=== PATIENT | female | born 2005 | race Caucasian/White ===

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

== ENCOUNTER → 2023-03-23 | Outpatient (CLI) | payer OTHER ==
--- NOTE | 2023-03-23 09:12 | US ---
EXAMINATION TYPE: Transabdominal DATE OF EXAM: 03/23/2023 8:57 AM COMPARISON: NONE CLINICAL INDICATION: Female, 17 years old with history of Z36.89 CONFIRM GESTATIONAL AGE AND VIABILIT Y; confirm dates EXAM PERFORMED: Transabdominal (TA) EXAM MEASUREMENTS: GESTATIONAL AGE / DATING Dates by LMP: (12 weeks/6 days) EDC: 09/29/2023 Dates by Current Scan for: (12 weeks/4 days) EDC: 10/01/2023 MATERNAL ANATOMY Uterus: 12.5x5.9x8.5cm Right Ovary: 3.4x3.2x2.1cm Left Ovary: 2.5x1.8x1.5cm Post CDS / Adnexa: wnl Presence of free fluid: negative Presence of corpus luteal cyst: n/a Presence of subchorionic bleed: n/a GESTATION / SURVEY CRL: 6.05 (12 weeks/4 days) Yolk Sac (normal less than 6mm): not visualized Heart Rate: 151 bpm Rhythm: Normal IUP: Viable IUP Nuchal Translucency 10-14wks (normal less than 3mm): not assessed Age Appropriate Anatomy Cord Insertion: Too early to visualize Limbs: Arms Visualized Calvarium: Visualized Date of LMP: 12/23/2022 Beta HcG (if available): Not available at this time IMPRESSION: Single live intrauterine gestation with ultrasound age 12 weeks 4 days which is concordant with dates by last menstrual period.
== END | disposition home or self-care (01) ==
LOC: RADUSWWP 08:21
PROVIDERS: ATTEND Obstetrics & Gynecology
DX: Z36.89 Encounter for other specified antenatal screening (principal); Z3A.12 12 weeks gestation of pregnancy
CPT/HCPCS: 76801

== ENCOUNTER 2023-09-30 05:49 | Inpatient (IN) | payer BC, OTHER ==
--- NOTE | 2023-09-29 07:00 | P.HPOB ---
History of Present Illness H&P Date: 09/29/23 Chief Complaint: Requested induction of labor This patient is a pleasant 18-year-old 1 para 0 female estimated date of confinement 09/29/2023 estimated gestational age 40 and one sevenths weeks who presents to labor and delivery for requested induction of labor. Patient's care has been uncomplicated. She is now past her due date as requested induction of labor. Review of Systems Genitourinary: Reports Menstruation: Reports amenorrhea Past Medical History Past Medical History: No Reported History History of Any Multi-Drug Resistant Organisms: None Reported Past Surgical History: No Surgical Hx Reported Past Anesthesia/Blood Transfusion Reactions: No Reported Reaction Past Psychological History: No Psychological Hx Reported Smoking Status: Former smoker Past Alcohol Use History: None Reported Past Drug Use History: None Reported Medications and Allergies Allergies Allergy/AdvReac Type Severity Reaction Status Date / Time No Known Allergies Allergy Verified 08/30/18 14:04 Exam - OBG Physical Exam Abdomen: bowel sounds normal, no diffuse tenderness, no bruit present, no guarding noted, no hepatomegaly, no splenomegaly, no mass Vulva: both: normal Vagina: normal moisture, no discharge Cervix: no lesion (Cervix in the office is 2 cm dilated and effaced.), no discharge Uterus: enlarged (Fundal height 39 cm) Results blood work shows she is A positive, rubella non-immune, RPR is nonreactive, hepatitis B and C are negative, HIV is nonreactive, Glucola was normal, anatomy and growth ultrasounds have been normal, group B strep was positive. Assessment and Plan Assessment: This is a pleasant 18-year-old 1 para 0 female 40 and one sevenths weeks gestation admitted to labor and delivery for requested induction of labor. Patient is a positive group B strep as well. Plan is antibiotic prophylaxis, Pitocin induction of labor per protocol, and anticipate vaginal delivery. (1) 40 weeks gestation of Status: Acute Code(s): Z3A.40 - 40 WEEKS GESTATION OF SNOMED Code(s): 83102466 (2) Elective induction of labor planned Status: Acute Code(s): GOX0947 - SNOMED Code(s): 693265529 (3) Group B streptococcal carriage complicating Status: Acute Code(s): O99.820 - STREPTOCOCCUS B CARRIER STATE COMPLICATING SNOMED Code(s): 806935774538140
[2023-09-30] MEDS ORDERED: OXYTOCIN 10 UNIT/ML 1 ML VIAL IM PRN (06:05)
[2023-09-30] MEDS ORDERED: LACTATED RINGERS 1,000 ML IV SCH (06:05)
[2023-09-30] MEDS ORDERED: OXYTOCIN 30 UNITS/500 ML NS 30 UNIT in SALINE 1 500ML.BAG IV SCH ×2 (06:05→12:30)
[2023-09-30] MEDS ORDERED: TRANEXAMIC 1,000 MG/100ML-NACL 1,000 MG in EMPTY BAG 1 BAG IV PRN (06:05)
[2023-09-30] MEDS ORDERED: AMPICILLIN 2,000 MG in SODIUM CHLORIDE 0.9% 100 ML IVPB STA (06:05)
[2023-09-30] MEDS ORDERED: miSOPROStoL 200 MCG TAB PO PRN (06:05)
[2023-09-30] MEDS ORDERED: LIDOCAINE 0.5% (PF) 5 MG/ML (50 ML SDV) SQ PRN (06:05)
[2023-09-30] MEDS ORDERED: CARBOPROST TROMETHAMINE 250 MCG/ML 1 ML AMP IM PRN (06:05)
[2023-09-30] MEDS ORDERED: TERBUTALINE 1 MG/ML VIAL SQ PRN (06:05)
[2023-09-30] MEDS ORDERED: METHYLERGONOVINE 0.2 MG/ML 1 ML AMP IM PRN (06:05)
[2023-09-30 06:19] LABS: Basophils # (A) 0.1 k/uL (0-0.2); Basophils % (A) 0 %; Eosinophils # (A) 0.3 k/uL (0-0.7); Eosinophils % (A) 2 %; HCT 32.7 % (34.0-46.0); HGB 10.8 gm/dL (11.4-16.0); Hypochromasia Slight; Lymphocytes # (A) 2.9 k/uL (1.0-4.8); Lymphocytes % (A) 24 %; MCH 26.6 pg (25.0-35.0); MCV 80.7 fL (80.0-100.0); Mean Platelet Volume 9.3; Monocytes # (A) 0.7 k/uL (0-1.0); Monocytes % (A) 6 %; Neutrophils # (A) 7.8 k/uL (1.3-7.7); Neutrophils % (A) 65 %; Platelet Count 239 k/uL (150-450); RBC 4.05 m/uL (3.80-5.40); RDW 14.6 % (11.5-15.5)
[2023-09-30] MEDS ORDERED: NALBUPHINE 10 MG/ML (10 ML MDV) IV PRN (09:28)
[2023-09-30] MEDS ORDERED: AMPICILLIN 1,000 MG in SODIUM CHLORIDE 0.9% 50 ML IVPB SCH (10:30)
[2023-09-30] MEDS ORDERED: ROPIVACAINE 5 MG/ML 30 ML VIAL ONE (11:21)
[2023-09-30] MEDS ORDERED: SODIUM CHLORIDE 0.9% 250 ML BAG ONE (11:21)
[2023-09-30] MEDS ORDERED: fentaNYL (PF) 50 MCG/ML 5 ML AMP ONE (11:21)
[2023-09-30] MEDS ORDERED: diphenhydrAMINE 25 MG CAP PO PRN (12:19)
[2023-09-30] MEDS ORDERED: diphenhydrAMINE 50 MG/ML 1 ML VIAL IVP PRN (12:19)
[2023-09-30] MEDS ORDERED: bisacodyL 10 MG SUPP RECTAL PRN (12:19)
[2023-09-30] MEDS ORDERED: ZOLPIDEM 5 MG TAB PO PRN (12:19)
[2023-09-30] MEDS ORDERED: MEASLES-MUMPS-RUBELLA VACC/PF 12,500 UNIT/0.5 ML VIAL SQ ONE (12:19)
[2023-09-30] MEDS ORDERED: SIMETHICONE 80 MG CHEWABLE PO PRN (12:19)
[2023-09-30] MEDS ORDERED: HYDROCORTISONE 2.5% RECTAL CREAM 30 GM TUBE RECTAL PRN (12:19)
[2023-09-30] MEDS ORDERED: BENZOCAINE/MENTHOL SPRAY 1 GM/SPRAY AEROSOL TOPICAL PRN (12:19)
[2023-09-30] MEDS ORDERED: LANOLIN CREAM 5 GM TUBE TOPICAL PRN (12:19)
[2023-09-30] MEDS ORDERED: ACETAMINOPHEN TAB 325 MG TAB PO PRN (12:19)
--- NOTE | 2023-09-30 12:24 | P.PROBDLV ---
Vaginal Delivery Note - . Vaginal Delivery Note: Normal vaginal delivery viable male infant Apgars 7 and 9 delivery time is 1200 hrs. Please see dictated H&P for intimate details of this patient's admission. In brief summary this pleasant 18-year-old 1 para 0 female 40 and one sevenths weeks gestation admitted to labor and delivery for postdates induction of labor. On admission she is 3 cm dilated has artificial rupture membranes for clear fluid. She is given antibiotics due to a positive group B strep culture. Patient's labor progresses and she does get an epidural for pain control. She quickly gets to complete and pushes the head to the perineum. Posterior perineum is supported. She then does have some bradycardia in the 70s and at this time it is felt an episiotomy is necessary for delivery. Therefore infiltrate posterior perineum with 1% lidocaine. Midline episiotomy i s made. We then immediately have delivery of the 's head. Mouth and nares are bulb suctioned. There is a tight nuchal cord which is doubly clamped and then reduced. The anterior shoulder then spontaneously delivers followed by the rest of the infant's body. This is a vigorous viable male Apgars are 7 and 9 delivery time is 1200 hrs. After delivery of the infant the infant is laid on the mother's abdomen. The placenta is then spontaneously delivered intact. Inspection of the perineum shows second-degree laceration was repaired with 3-0 Vicryl in the usual fashion excellent reapproximation is noted. All counts are correct 3. There are no complications. Estimated blood loss is 100 mL. Infant and mother stable in delivery room.
[2023-09-30] MEDS: IBUPROFEN 600 MG TAB PO PRN (13:23)
[2023-09-30] MEDS: SENNOSIDES-DOCUSATE SODIUM 1 EACH TAB PO SCH (20:09)
[2023-10-01] MEDS: IBUPROFEN 600 MG TAB PO PRN ×2 (03:49→11:12)
[2023-10-01 06:05] LABS: Basophils % (A) 0 %; Eosinophils # (A) 0.2 k/uL (0-0.7); Eosinophils % (A) 1 %; HCT 30.5 % (34.0-46.0); Hypochromasia Slight; Lymphocytes # (A) 2.9 k/uL (1.0-4.8); Lymphocytes % (A) 21 %; MCH 26.3 pg (25.0-35.0); MCHC 32.8 g/dL (31.0-37.0); MCV 80.1 fL (80.0-100.0); Mean Platelet Volume 8.6; Monocytes # (A) 1.1 k/uL (0-1.0); Monocytes % (A) 8 %; Neutrophils # (A) 9.5 k/uL (1.3-7.7); Neutrophils % (A) 68 %; Platelet Count 219 k/uL (150-450); RBC 3.82 m/uL (3.80-5.40); RDW 15.1 % (11.5-15.5); WBC 13.9 k/uL (4.0-11.0)
--- NOTE | 2023-10-01 06:44 | P.PNOBGVD ---
Subjective - Subjective Patient reports: Reports appetite normal, Reports voiding normally, Reports pain well controlled, Reports ambulating normally : doing well Objective - Latest Vital Signs Latest vital signs: Vital Signs Temp Pulse Resp BP Pulse Ox 10/01/23 04:00 98.0 F 85 17 117/76 97 10/01/23 00:00 98.0 F 87 16 130/78 97 09/30/23 20:00 97.3 F L 105 H 17 120/85 96 09/30/23 16:00 74 17 118/76 09/30/23 14:10 82 16 120/83 09/30/23 13:40 75 16 129/76 09/30/23 13:10 78 16 110/78 09/30/23 12:55 71 16 106/55 09/30/23 12:40 80 16 112/60 09/30/23 12:25 80 17 114/53 09/30/23 12:10 97.2 F L 85 16 114/54 Intake and Output 09/30/23 09/30/23 10/01/23 14:59 22:59 06:59 Output Total 500 Balance -500 Output: Urine 500 Other: # Voids 1 1 - Exam Lungs: bilateral: normal Chest: Normal S1, Normal S2 Extremities: Present: normal Abdomen: Present: normal appearance, soft Uterus: Present: normal, firm - Labs Labs: Abnormal Lab Results - Last 24 Hours (Table) 10/01/23 Range/Units 05:42 WBC 13.9 H (4.0-11.0) k/uL Hgb 10.0 L (11.4-16.0) gm/dL Hct 30.5 L (34.0-46.0) % Neutrophils # 9.5 H (1.3-7.7) k/uL Monocytes # 1.1 H (0-1.0) k/uL Assessment and Plan Assessment: day #1. Patient is resting without complaints and wishes to go home. Vital signs are stable she's afebrile. Uterus is firm nontender she's having normal lochia. My impression this is a normal course. Plan is to continue routine care discharge home later today (1) 40 weeks gestation of Current Visit: No Status: Acute Code(s): Z3A.40 - 40 WEEKS GESTATION OF SNOMED Code(s): 62395511 (2) Elective induction of labor planned Current Visit: No Status: Acute Code(s): VNQ0229 - SNOMED Code(s): 565728033 (3) Group B streptococcal carriage complicating Current Visit: No Status: Acute Code(s): O99.820 - STREPTOCOCCUS B CARRIER STATE COMPLICATING SNOMED Code(s): 697759089971808
--- NOTE | 2023-10-01 06:47 | P.DS ---
Providers Date of admission: 09/30/23 05:49 Expected date of discharge: 10/01/23 Attending physician: Js Grewal Primary care physician: Stated None - Discharge Diagnosis(es) (1) 40 weeks gestation of Current Visit: No Status: Acute (2) Elective induction of labor planned Current Visit: No Status: Acute (3) Group B streptococcal carriage complicating Current Visit: No Status: Acute Hospital Course: Please see dictated H&P for intimate details of this patient's admission. Brief summary is a pleasant 18-year-old 1 para 0 female 40 and one sevenths weeks gestation admitted for postdates induction of labor. Patient is admitted quickly goes on to have a vaginal delivery viable male infant. Please see dictated delivery note. day #1 patient's felt be stable for dischar ge home follow up with me in 6 weeks. Procedures: Induction of labor and normal vaginal delivery Patient Condition at Discharge: Good Plan - Discharge Summary New Discharge Prescriptions: New Ibuprofen [Motrin] 600 mg PO Q6HR PRN #30 tab PRN Reason: Mild Pain (Scale 1 To 3) No Action Vit No.179/Iron/Folic [ Tablet] 1 each PO Discharge Medication List Vit No.179/Iron/Folic [ Tablet] 1 each PO 09/30/23 [History] Ibuprofen [Motrin] 600 mg PO Q6HR PRN #30 tab 10/01/23 [Rx] Follow up Appointment(s)/Referral(s): Js Grewal MD [STAFF PHYSICIAN] - 11/10/23 1:30 pm Patient Instructions/Handouts: Vaginal Delivery (DC) Activity/Diet/Wound Care/Special Instructions: No intercourse or anything per vagina for 6 weeks. Please call if any fever, chills, excessive vaginal bleeding, and/or abdominal pain Discharge Disposition: HOME SELF-CARE
[2023-10-01] MEDS: SENNOSIDES-DOCUSATE SODIUM 1 EACH TAB PO SCH ×2 (08:07→19:57)
[2023-10-02 02:32] VITALS: RESP 16
[2023-10-02] MEDS: IBUPROFEN 600 MG TAB PO PRN (05:48)
--- NOTE | 2023-10-02 06:53 | P.PNOBGVD ---
Subjective - Subjective Patient reports: Reports appetite normal, Reports voiding normally, Reports pain well controlled, Reports ambulating normally : doing well Objective - Latest Vital Signs Latest vital signs: Vital Signs Temp Pulse Resp BP Pulse Ox 10/02/23 00:00 98.3 F 78 16 122/79 98 10/01/23 16:00 98.3 F 76 17 129/78 10/01/23 08:00 98.1 F 72 17 132/71 - Exam Lungs: bilateral: normal Chest: Normal S1, Normal S2 Extremities: Present: normal Abdomen: Present: normal appearance, soft Uterus: Present: normal, firm Assessment and Plan Assessment: Patient decided to stay yesterday therefore will be discharged home today. Plan is to continue routine care. (1) 40 weeks gestation of Current Visit: No Status: Acute Code(s): Z3A.40 - 40 WEEKS GESTATION OF SNOMED Code(s): 79376018 (2) Elective induction of labor planned Current Visit: No Status: Acute Code(s): TFT6203 - SNOMED Code(s): 377330210 (3) Group B streptococcal carriage complicating Current Visit: No Status: Acute Code(s): O99.820 - STREPTOCOCCUS B CARRIER STATE COMPLICATING SNOMED Code(s): 022234129237072
[2023-10-02] MEDS: SENNOSIDES-DOCUSATE SODIUM 1 EACH TAB PO SCH (08:47)
[2023-10-02 10:13] VITALS: BP 117/80; PULSE 79; TEMP 98.4
== END 2023-10-02 13:45 | disposition home or self-care (01) | DRG 560 ==
LOC: 4FBP 05:49
PROVIDERS: ADMIT Obstetrics & Gynecology; ATTEND Obstetrics & Gynecology
PROC: 10E0XZZ Delivery of Products of Conception, External Approach (ICD-10-PCS; principal; 2023-09-30)
PROC: 0KQM0ZZ Repair Perineum Muscle, Open Approach (ICD-10-PCS; 2023-09-30)
PROC: 10907ZC Drainage of Amniotic Fluid, Therapeutic from Products of Conception, Via Natural or Artificial Opening (ICD-10-PCS; 2023-09-30)
PROC: 0W8NXZZ Division of Female Perineum, External Approach (ICD-10-PCS; 2023-09-30)
DX: O48.0 Post-term pregnancy (principal); Z37.0 Single live birth; R00.1 Bradycardia, unspecified; O69.1XX0 Labor and delivery complicated by cord around neck, with compression, not applicable or unspecified; O99.824 Streptococcus B carrier state complicating childbirth; O70.1 Second degree perineal laceration during delivery; Z3A.40 40 weeks gestation of pregnancy; Z87.891 Personal history of nicotine dependence; Z28.310 Unvaccinated for COVID-19
CPT/HCPCS: 85025; 86850; 86900; 86901; 90707

== ENCOUNTER → 2024-06-29 | Outpatient (CLI) | payer SELFPAY ==
--- NOTE | 2024-06-29 09:49 | USB ---
Reason for Exam: Clinical finding. Technique: Method: Targeted. Findings: The area of palpable concern of the left breast, the axilla of the left breast and the retroareolar of the left breast were scanned. Targeted ultrasound left breast in the palpable site 4:00 position, 5 cm from the nipple. There is a circumscribed, round isoechoic mass with measuring 4.9 x 4.4 x 3.4 cm. There is internal vascularity and posterior through-transmission. Small internal cystic areas measure up to 5 mm. No axillary lymphadenopathy. Overall Assessment: Suspicious, BI-RAD 4 Management: Ultrasound Core Biopsy of the left breast. Surgical Consultation of both breasts. 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 After confirming with biopsy, the patient can meet with the breast surgeon to discuss possible treatment options. Results were given to the patient verbally at the time of exam. Electronically signed and approved by: Chalo Estrada M.D. Radiologist
== END | disposition home or self-care (01) ==
LOC: RADUSWWP 09:24
PROVIDERS: ATTEND Family Medicine
DX: N63.20 Unspecified lump in the left breast, unspecified quadrant (principal)

== ENCOUNTER → 2024-07-17 | Day surgery (SDC) | payer OTHER ==
--- NOTE | 2024-07-24 12:43 | USB ---
Pathology Description: Location: 4 o'clock. Marker Left Behind. Needle Type: Mammotome Cores: 6 Skin Nicks: 1 Gauge: 13 The procedure of ultrasound guided core biopsy was explained to the patient. Benefits, alternatives, and risks were discussed. An informed consent was then obtained. A timeout was performed. The patient was placed in supine positioning for imaging and for the procedure. The overlying skin was prepped and draped in usual sterile fashion. Lidocaine was used as anesthetic into the skin and subcutaneous tissue up to area of concern in the breast. A small skin reginaldo was made with surgical scalpel. Under ultrasound guidance, a 12-gauge vacuum assisted biopsy gun device was used to obtain 6 core samples. A biopsy clip was left in lesion. Hydromark coil core marker was placed in the center of the mass. The patient tolerated the procedure well without any immediate complication. The patient was kept in the radiology department for short stay after the procedure and then discharged home in stable condition. Postprocedure mammogram: Deferred due to patient age and volume lesion remaining following the procedure. Impression: Successful ultrasound guided core biopsy of area of concern in the left breast, full pathology results to follow. Recommendations: 1. Recommendations are pending pathology results. [facility], , 07/17/2024 2:49 PM. Pathology Results: Result: Benign, Fibroadenoma. Pathology and radiology were reviewed. Findings are concordant. LEFT BREAST, FOUR O'CLOCK, ULTRASOUND GUIDED CORE BIOPSY: Benign fibroadenoma with myxoid change. Overall Assessment: Benign Management: Surgical Consultation of the left breast. Electronically signed and approved by: Tino Mcrae D.O. Radiologis
== END ==
LOC: RADUSWWP 12:46
PROVIDERS: ATTEND Family Medicine
DX: R92.8 Other abnormal and inconclusive findings on diagnostic imaging of breast
CPT/HCPCS: 88305

== ENCOUNTER → 2025-01-15 | Outpatient (CLI) | payer OTHER ==
--- NOTE | 2025-01-15 08:17 | USB ---
Reason for Exam: Clinical finding. Patient History: 07/17/2024, Benign US biopsy breast VAD LT on the left side. Technique: Method: Targeted. Findings: The area of palpable concern of the right breast, the axilla of the right breast and the retroareolar of the right breast were scanned. There is a large partially solid partially cystic mass left breast measuring 4.7 x 4.2 cm.. Previously biopsied and reported to represent fibroadenoma. Overall Assessment: Benign, BI-RAD 2 Management: Surgical Consultation of the left breast. A clinical breast exam by your physician is recommended on an annual basis and results should be correlated with mammographic findings. This exam should not preclude additional follow-up of suspicious palpable abnormalities. Results were given to the patient verbally at the time of exam. [facility], , 01/15/2025 8:14 AM. Electronically signed and approved by: Tylor Davila M.D. Radiologis
== END | disposition home or self-care (01) ==
LOC: RADUSWWP 07:35
PROVIDERS: ATTEND Surgery
DX: N60.02 Solitary cyst of left breast (principal)

== ENCOUNTER → 2025-01-18 | Outpatient (CLI) | payer OTHER ==
--- NOTE | 2025-01-18 12:52 | USB ---
Reason for Exam: Clinical finding. Patient History: 07/17/2024, Benign US biopsy breast VAD LT on the left side. Technique: Method: Whole Breast Handheld. Findings: The whole breast of both breasts, the axilla of both breasts and the retroareolar of both breasts were scanned. A complete US of all four quadrants of the bilateral breast and retro-areolar region were reviewed. Rounded solid mass 4:00 position left breast measuring 4.7 cm stable. There is a benign cyst or cyst cluster seen within the right breast 5:00 position. Measures up to 9 mm. Overall Assessment: Suspicious, BI-RAD 4 Management: Surgical Consultation of the left breast. A clinical breast exam by your physician is recommended on an annual basis and results should be correlated with mammographic findings. This exam should not preclude additional follow-up of suspicious palpable abnormalities. Results were given to the patient verbally at the time of exam. [facility], , 01/18/2025 12:47 PM. Electronically signed and approved by: Tylor Davila M.D. Radiologis
== END | disposition home or self-care (01) ==
LOC: RADUSWWP 11:16
PROVIDERS: ATTEND Surgery
DX: N63.10 Unspecified lump in the right breast, unspecified quadrant (principal); N63.22 Unspecified lump in the left breast, upper inner quadrant

== ENCOUNTER → 2025-01-18 | Outpatient (CLI) | payer OTHER ==
[2025-01-18 10:43] VITALS: BP 113/76; PULSE 63; RESP 17; TEMP 98
--- NOTE | 2025-01-18 11:00 | P.BCPN ---
Subjective Progress Note Date: 01/18/25 Principal diagnosis: fibroadenoma left breast 01-18-25 Reason for Consult: mass left breast Requesting physician: Elia Clifton History of present illness: Cathy is a 19 year old female seen in consultation for Dr. Clifton regarding a left breast ultrasound core biopsy on 07-17-24. The lesion was 4.9 by 4.4 by 3.4 in size. She was able to feel the lesion in her left breast for about two years. It has increased in size. It is painful at times. She has not had any surgery on her breast. She has not had any recent trauma or infection in the breast. She has not had any radiographic evaluation of the right breast. The lump does not change in size with her menstrual cycle. The lump has increased in size since she noted it and it is painful. note 07-20-24 DR. Clifton reviewed Caffeine: none nicotine: vapes 1 cartridge every two weeks alcohol: occasional chocolate: occasional BCP: 1 year not on them now Family History: maternal aunt: breast cancer late Hormonal History: menarche: 9 age at first : 18, did not breast feed periods regular , LMP: last week Surgical History: none Medical History: none Social history: Vapes 1 cartridge every 2 weeks; since alcohol: occasional drugs: none Review of Systems - Constitutional Denies fever, Denies weight loss - EENT Eyes: denies blurred vision Ears: deny: decreased hearing, tinnitus Ears, nose, mouth and throat: Denies dysphagia - Breasts bilateral: as per HPI - Cardiovascular Denies chest pain, Denies shortness of breath - Respiratory Denies cough - Gastrointestinal Reports as per HPI - Genitourinary Genitourinary: Denies dysuria, Denies hematuria Menstruation: Reports period normal - Musculoskeletal Reports as per HPI - Integumentary Denies rash, Denies unusual bruising - Neurological Denies headaches, Denies syncope - Psychiatric Reports as per HPI - Endocrine Reports as per HPI - Hematologic/Lymphatic Denies easy bleeding, Denies easy bruising - Allergic/Immunologic Reports seasonal allergies Past Medical History Past Medical History: No Reported History History of Any Multi-Drug Resistant Organisms: None Reported Past Surgical History: No Surgical Hx Reported Past Anesthesia/Blood Transfusion Reactions: No Reported Reaction Additional Past Anesthesia/Blood Transfusion Reaction / Comm: no hx. anesthesia Past Psychological History: No Psychological Hx Reported Smoking Status: Current every day smoker, Vaper Past Alcohol Use History: Occasional Past Drug Use History: None Reported Medications and Allergies Home Medications Medication Instructions Recorded Confirmed Type No Known Home Medications 07/04/24 12/14/24 History Allergies Allergy/AdvReac Type Severity Reaction Status Date / Time No Known Allergies Allergy Verified 12/14/24 12:38 Objective - Vital Signs Vital Signs: Vital Signs Temp 98.0 F 01/18/25 10:40 Pulse 63 01/18/25 10:40 Resp 17 01/18/25 10:40 BP 113/76 01/18/25 10:40 Pulse Ox 98 01/18/25 10:40 FiO2 Intake & Output 01/17/25 01/18/25 01/18/25 18:59 06:59 18:59 Weight 99.79 kg - Constitutional General appearance: Present: cooperative - EENT Eyes: Present: EOMI ENT: Present: hearing grossly normal - Neck Neck: Present: normal ROM - Breast Breast-Narrative: Breast Exam: BRA: large sports bra inspection: Bilateral grade 2 ptosis Palpation: Right breast: Multi positional exam no dominant masses or nodules of concern Right axilla: No adenopathy of concern Left breast: Multi positional exam approximately 5 x 6 cm firm mass in the lower outer quadrant consistent with the area where fibroadenoma was biopsied no other dominant masses or nodules of concern Left axilla: No adenopathy of concern Bra Size: large Ptosis: Grade 2: Right Breast Ptosis, Left Breast Ptosis Breast: right: normal, left: mass (5 by 6 cm mass lower outer quadrant) Right Breast Palpation (Multi-positional): No dominant masses Left Breast Palpation (Multi-positional): Other Right Axilla Palpation: No adenopathy of concern Left Axilla Palpation: No adenopathy of concern - Respiratory Respiratory: bilateral: CTA - Cardiovascular Rhythm: regular Heart sounds: normal: S1, S2 - Gastrointestinal General gastrointestinal: Present: soft - Integumentary Integumentary: Present: normal turgor - Musculoskeletal Musculoskeletal: Present: gait normal - Psychiatric Psychiatric: Present: A&O x's 3, appropriate affect, intact judgment & insight Assessment and Plan Plan: Impression: Biopsy-proven left breast fibroadenoma; > 5 cm lesion Plan: Bilateral breast ultrasound to rule out any other fibroadenomas prior to surgical resection; left side done and no additional sites seen Surgical resection palpable mass left breast/this is increasing in size it is painful; possible oncoplastic tissue transfer CC: Dr. Clifton Prep Education Provided - Preoperative Education Given Pre-Op Kit Given Date: 01/18/25 - Functional Assessment Performed?: Yes (arm abduction passed) Referal Provided?: No - Smoking Cessation Education Provided?: Yes (patient vapes )
== END ==
LOC: WWCWWP 09:35
PROVIDERS: ATTEND Surgery
DX: D24.2 Benign neoplasm of left breast (principal)

== ENCOUNTER 2025-02-06 09:59 | Day surgery (SDC) | payer OTHER ==
[2025-02-02 13:29] VITALS: BMI 37.8
[~2025-02-06 09:59] MED LIST: HYDROmorphone 0.5 MG/0.5 ML SYRINGE IVP PRN; LIDOCAINE 1% (10MG/ML) FOR IV START INTRADERMA PRN; MIDAZOLAM 2 MG/2 ML VIAL IV PRN; fentaNYL (PF) 50 MCG/ML 2 ML AMP IVP PRN
[2025-02-06] MEDS: IV FLUID CONTINUATION 1,000 ML IV ONE (10:45)
[2025-02-06] MEDS: LACTATED RINGERS 1,000 ML IV SCH (10:47)
[2025-02-06] MEDS: DEXAMETHASONE SOD PHOSPHATE 4 MG/ML 1 ML VIAL IV ONE (10:55)
[2025-02-06] MEDS: ACETAMINOPHEN TAB 500 MG TAB PO PRN (10:55)
[2025-02-06] MEDS: ONDANSETRON 4 MG/2 ML VIAL IVP ONE (10:56)
[2025-02-06] MEDS: HEPARIN SODIUM,PORCINE 5,000 UNIT/ML 1 ML VIAL SQ PRN (10:56)
[2025-02-06] MEDS: SCOPOLAMINE 1 MG/72 HR PATCH TRANSDERM STA (10:57)
[2025-02-06] MEDS ORDERED: fentaNYL (PF) 50 MCG/ML 2 ML AMP ONE (12:15)
[2025-02-06] MEDS ORDERED: diphenhydrAMINE 50 MG/ML 1 ML VIAL ONE (12:15)
[2025-02-06] MEDS ORDERED: PROPOFOL 10 MG/ML 20 ML VIAL IV ONE (12:15)
[2025-02-06] MEDS ORDERED: MIDAZOLAM 2 MG/2 ML VIAL ONE (12:15)
[2025-02-06] MEDS ORDERED: LIDOCAINE 1% INJ 10MG/ML (20 ML MDV) ONE (12:15)
[2025-02-06] MEDS: ceFAZolin 2 GM in DEXTROSE 5% IN WATER 50 ML IVPB PRN (12:20)
[2025-02-06] MEDS: LIDOCAINE 1% INJ 10MG/ML (20 ML MDV) SQ ONE ×2 (12:55→13:15)
--- NOTE | 2025-02-06 13:12 | P.BCAON ---
Date of Procedure: 02/06/25 Preoperative Diagnosis: Mass left breast Postoperative Diagnosis: Same Procedure(s) Performed: Resection left breast mass Anesthesia: ANNAA Surgeon: Arielle Thompson Estimated Blood Loss (ml): 5 IV fluids (ml): 500 Pathology: other (Mass left breast) Condition: stable Disposition: same day Indications for Procedure: Mass left breast Operative Findings: Mass left breast Description of Procedure: The patient was brought to the operative suite and following induction of anesthesia the left breast was prepped and draped in a sterile fashion. An incision was made and carried down to the palpable mass. The area was excised excising tissue around the mass. This was painted for orientation. After we are sure that hemostasis was attained the deep tissues were closed using 3-0 Vicryl suture. The lesion was 6.5 cm x 6 cm. The subcutaneous tissue was closed using 3-0 Vicryl suture. The skin was closed using 4-0 Monocryl. A cc of 1% lidocaine was injected into the area of the incision. The patient tolerated the procedure in stable condition. Surgical glue was placed.
[2025-02-06 13:33] VITALS: TEMP 97.6
[2025-02-06 14:15] VITALS: RESP 14
[2025-02-06 14:40] VITALS: PULSE 78
[2025-02-06 14:46] VITALS: BP 107/70
== END 2025-02-06 15:15 | disposition home or self-care (01) ==
LOC: OR 09:59
PROVIDERS: ATTEND Surgery
DX: D24.2 Benign neoplasm of left breast (principal); N64.81 Ptosis of breast; E66.9 Obesity, unspecified; Z68.38 Body mass index [BMI] 38.0-38.9, adult; F17.290 Nicotine dependence, other tobacco product, uncomplicated; Z80.3 Family history of malignant neoplasm of breast
CPT/HCPCS: 19120; 81025; 88307; J2250; J1200; J1644; J1100; J0690; J2405; J2003; J3010; J2704

== ENCOUNTER → 2025-02-15 | Outpatient (CLI) | payer OTHER ==
--- NOTE | 2025-02-15 11:37 | P.BCPO ---
Progress Note - Text Progress Note Date: 02/15/25 Cathy is status post left breast excisional biopsy on 02-06-25. Her pathology was consistent with a fibroadenoma. The tumor was 5.3 by 4.5 by 4.5 cm. Post operatively she is doing well. Examination: Lungs: clear heart: RRR incision: clean and dry Impression: Patient doing well postoperatively Plan: Left breast ultrasound in 6 months with examination at that time Patient to follow-up sooner any questions or concerns Post Op Education - Post Op Education Post Op Education Provided Date: 02/15/25 - Functional Assessment Performed?: Yes (passes arm abduction) Referal Provided?: No Path Report - Was patient given path report? Path Report Date Given: 02/15/25
[2025-02-15 11:40] VITALS: BP 108/72; PULSE 80; RESP 16; TEMP 98.3
== END ==
LOC: WWCWWP 11:19
PROVIDERS: ATTEND Surgery
DX: D24.2 Benign neoplasm of left breast (principal); Z98.890 Other specified postprocedural states